=== PATIENT | male | born 1950 | race Two or more races ===

== ENCOUNTER 2017-11-24 15:01 | Outpatient (CLI) | payer OTHER ==
[~2017-11-24] VITALS: Ht 167.6 cm; Wt 83.9 kg
== END 2017-11-24 15:15 | disposition home or self-care (01) ==
LOC: OFIC 805 15:01
DX: H93.12 Tinnitus, left ear (principal)

== ENCOUNTER 2019-04-23 14:37 | Outpatient (CLI) | payer OTHER | END 2019-04-23 14:42 | disposition home or self-care (01) | LOC: RAD 14:37 | DX: M54.5 Low back pain (principal); Z01.810 Encounter for preprocedural cardiovascular examination; E03.8 Other specified hypothyroidism; E78.89 Other lipoprotein metabolism disorders; E11.51 Type 2 diabetes mellitus with diabetic peripheral angiopathy without gangrene; E66.8 Other obesity; E55.9 Vitamin D deficiency, unspecified; G62.89 Other specified polyneuropathies; E11.42 Type 2 diabetes mellitus with diabetic polyneuropathy; I11.9 Hypertensive heart disease without heart failure ==

== ENCOUNTER → 2020-02-15 08:43 | Outpatient (CLI) | payer OTHER | END | disposition home or self-care (01) | LOC: PPH VACUNA 08:43 | PROVIDERS: ATTEND Emergency Medicine Pediatric Emergency Medicine | DX: Z23 Encounter for immunization (principal) ==

== ENCOUNTER 2020-03-07 08:48 | Outpatient (CLI) | payer OTHER | END 2020-03-07 12:00 | disposition home or self-care (01) | LOC: PPH VACUNA 08:48 | PROVIDERS: ATTEND Emergency Medicine Pediatric Emergency Medicine | DX: Z23 Encounter for immunization (principal) ==

== ENCOUNTER 2020-11-23 14:20 | Outpatient (CLI) | payer OTHER | END 2020-11-23 14:45 | disposition home or self-care (01) | LOC: PPH VACUNA 14:20 | PROVIDERS: ATTEND Emergency Medicine Pediatric Emergency Medicine | DX: Z23 Encounter for immunization (principal) ==

== ENCOUNTER 2024-05-15 08:54 | Outpatient (CLI) | payer OTHER | END 2024-05-15 09:00 | disposition home or self-care (01) | LOC: RAD 08:54 | PROVIDERS: ATTEND Internal Medicine | DX: E78.9 Disorder of lipoprotein metabolism, unspecified (principal); K21.9 Gastro-esophageal reflux disease without esophagitis; E55.9 Vitamin D deficiency, unspecified; M51.06 Intervertebral disc disorders with myelopathy, lumbar region; M62.838 Other muscle spasm; M62.830 Muscle spasm of back; Z12.11 Encounter for screening for malignant neoplasm of colon; N41.0 Acute prostatitis ==